=== PATIENT | female | born 1955 | race Two or more races ===

== ENCOUNTER 2023-05-02 09:58 | Emergency (ER) | payer OTHER ==
[~2023-05-02] VITALS: Ht 162.6 cm; Wt 62.7 kg
[2023-05-02 10:37] VITALS: BP 167/66
[2023-05-02] MEDS ORDERED: CYCL-837 PO (11:14)
[2023-05-02] MEDS ORDERED: ACET-1079 PO (11:14)
== END 2023-05-02 11:21 | disposition home or self-care (01) ==
LOC: ER 09:58
DX: S93.602A Unspecified sprain of left foot, initial encounter (principal); E78.5 Hyperlipidemia, unspecified; I10 Essential (primary) hypertension; Z90.49 Acquired absence of other specified parts of digestive tract; W18.39XA Other fall on same level, initial encounter; Y93.89 Activity, other specified; Y92.89 Other specified places as the place of occurrence of the external cause; Y99.8 Other external cause status
CPT/HCPCS: 29515; 73630

== ENCOUNTER 2024-03-08 08:07 | Day surgery (SDC) | payer OTHER ==
[~2024-03-08] VITALS: Ht 162.6 cm; Wt 66.7 kg
[~2024-03-08 08:07] MED LIST: ACET-1079 PO; ROSU5TAB5 PO
[2024-03-08] MEDS ORDERED: ALEN70TA74 PO (08:47)
[2024-03-08] MEDS ORDERED: CALC-437 PO (08:47)
[2024-03-08] MEDS ORDERED: SIMV10TA20 PO (08:47)
[2024-03-08] MEDS ORDERED: LEVO25TA6 PO (08:48)
[2024-03-08] MEDS ORDERED: IODIXANOL 320MG/ML 100ML BTL IV ONE (09:45)
[2024-03-08] MEDS ORDERED: LIDOCAINE 2%HCL (LOCAL ANESTH.) INJ 20ML MDV ONE (09:45)
[2024-03-08] MEDS ORDERED: fentaNYL CITRATE 100 MCG/2 ML VL ONE (10:03)
[2024-03-08] MEDS ORDERED: MIDAZOLAM HCL 2MG/2ML 2ml VIAL (1mg/ml) ONE (10:03)
[2024-03-08] MEDS ORDERED: VERAPAMIL 2.5MG/ML INJ 2ML VIAL IV ONE (10:03)
[2024-03-08] MEDS ORDERED: SODIUM CHL 0.9% 0 ML ONE (10:03)
[2024-03-08] MEDS ORDERED: ANGIOMAX 250 MG VIAL IV ONE (10:03)
[2024-03-08] MEDS ORDERED: HEPARIN SODIUM (PORCINE) 5000 UNITS/ML 1ML VIAL ONE (10:03)
[2024-03-08 10:33] VITALS: BP 139/63; PULSE 69; RESP 17; TEMP 98.2; O2SAT 95
[2024-03-08 10:45] VITALS: BP 132/60; PULSE 70; RESP 15; O2SAT 96
[2024-03-08 11:01] VITALS: BP 137/60; PULSE 63; RESP 16; O2SAT 97
[2024-03-08] MEDS ORDERED: SIMV5TAB14 PO (11:05)
[2024-03-08 11:17] VITALS: BP 135/64; PULSE 65; RESP 15; O2SAT 95
[2024-03-08 11:48] VITALS: BP 127/29; PULSE 78; RESP 20; O2SAT 97
== END 2024-03-08 12:30 | disposition home or self-care (01) ==
LOC: CATH 08:07
PROVIDERS: ATTEND Internal Medicine
DX: R94.39 Abnormal result of other cardiovascular function study (principal); R00.2 Palpitations; R07.9 Chest pain, unspecified; E11.9 Type 2 diabetes mellitus without complications
CPT/HCPCS: 93458; C1887; C1894; J1644; J2250; J3010; Q9967; 99152